=== PATIENT | female | born 1955 | race African-American/Black ===

== ENCOUNTER → 2020-01-28 | Emergency (ER) | payer OTHER ==
[~2020-01-28] VITALS: Ht 167.6 cm; Wt 61.2 kg
[~2020-01-28] MED LIST: MORPHINE SULF INJ 2 MG/ML SYRINGE 1ML IV ONE; ONDANSETRON HCL 4 MG/2 ML VIAL IV ONE
[2020-01-28 07:12] LABS: Urine Bacteria FEW /hpf (None Seen); Urine Blood Negative /uL (Negative); Urine Mucus FEW (None Seen); Urine Specific Gravity 1.028 (1.001-1.035); Urine WBC 16 /hpf (0 - 5)
[2020-01-28 07:45] LABS: Basophils # (auto) 0 10 ^3/uL (0-0.2); Basophils % (auto) 0.5 % (0.0-2.0); Eosinophils # (auto) 0.4 10 ^3/uL (0-0.8); Eosinophils % (auto) 4.7 % (0.0-7.0); Hematocrit 38.4 % (36.0-46.0); Hemoglobin 12.8 g/dL (12.2-16.2); Lymphocytes # (auto) 2.7 10 ^3/uL (0.4-5.4); Lymphocytes % (auto) 36.1 % (10.0-50.0); Mean Corpuscular Hemoglobin 31.9 pg (28.0-32.0); Mean Corpuscular Hgb Conc. 33.3 g/dL (32.0-36.0); Mean Corpuscular Volume 95.8 fL (80.0-100.0); Monocytes # (auto) 0.7 10 ^3/uL (0-1.3); Monocytes % (auto) 8.9 % (0.0-12.0); Neutrophils # (auto) 3.8 10 ^3/uL (1.6-8.6); Neutrophils % (auto) 49.8 % (37.0-80.0); Nucleated Red Blood Cells % 0.1 %; Platelet Count (auto) 268 10^3/uL (140-450); Red Blood Cells 4.01 10^6/uL (4.0-5.20); Red Cell Distribution Width 13.7 % (11.8-14.3); White Blood Cell 7.6 10^3/uL (4.4-10.8)
[2020-01-28 07:52] LABS: INR 1.05 (0.9-1.15); Partial Thromboplastin Time 29.9 sec (23.64-32.05)
[2020-01-28 07:56] LABS: Albumin 3.4 g/dL (3.4-5.0); Anion Gap 1 (5-15); Blood Urea Nitrogen 18 mg/dL (7-18); Calcium 8.4 mg/dL (8.5-10.1); Carbon Dioxide 27 mmol/L (21-32); Chloride 114 mmol/L (98-107); Glucose 84 mg/dL (74-106); Magnesium 2.5 mg/dL (1.6-2.6); Potassium 4.1 mmol/L (3.5-5.1); Sodium 142 mmol/L (136-145)
[2020-01-28 08:02] LABS: Alanine Aminotransferase 27 U/L (13-56); Alkaline Phosphatase 95 U/L (45-117); Aspartate Aminotransferase 19 U/L (15-37); BUN/Creatinine Ratio 18.6; Bilirubin, Total 0.2 mg/dL (0.2-1.0); GFR African American 74 mL/min; GFR Non-African American 61 mL/min
[2020-01-28 12:00] VITALS: BP 106/64
== END | disposition home or self-care (01) ==
LOC: EDUNIT# 05:50 → ER 06:06 → EDBD 06:06
DX: R09.1 Pleurisy (principal); N39.0 Urinary tract infection, site not specified; R07.81 Pleurodynia; F41.9 Anxiety disorder, unspecified; K21.9 Gastro-esophageal reflux disease without esophagitis
CPT/HCPCS: 36415; 71045; 80053; 81001; 83735; 83880; 84443; 84484; 85025; 85610; 85730; 93005; 96374; 96375; 99285; J2270; J2405